=== PATIENT | male | born 1975 | race Caucasian/White ===

== ENCOUNTER → 2016-08-23 | Outpatient (CLI) | payer MEDICAID ==
[~2016-08-23] MED LIST: CLIN1CAP5 PO; DEXA1TA PO; LEVA500T PO
== END ==
LOC: M OUTALCOH 12:10
PROVIDERS: ATTEND Psychiatry & Neurology Psychiatry
DX: Z13.9 Encounter for screening, unspecified (principal); F10.20 Alcohol dependence, uncomplicated

== ENCOUNTER 2016-09-14 09:00 | Outpatient (RCR) | payer MEDICAID | END 2016-09-15 | LOC: M OUTALCOH 09:00 | PROVIDERS: ATTEND Psychiatry & Neurology Psychiatry | DX: Z13.9 Encounter for screening, unspecified (principal); F10.20 Alcohol dependence, uncomplicated; F17.200 Nicotine dependence, unspecified, uncomplicated ==

== ENCOUNTER 2016-10-08 08:45 | Outpatient (RCR) | payer MEDICAID ==
[~2016-10-08 08:45] MED LIST changes: +CLIN150C14 PO; -CLIN1CAP5 PO; +LEVA1TAB2 PO; -LEVA500T PO
== END 2016-10-15 ==
LOC: M OUTALCOH 08:45
PROVIDERS: ATTEND Psychiatry & Neurology Psychiatry
DX: Z13.9 Encounter for screening, unspecified (principal); F10.20 Alcohol dependence, uncomplicated; F17.200 Nicotine dependence, unspecified, uncomplicated

== ENCOUNTER 2016-12-02 17:29 | Emergency (ER) | payer MEDICAID ==
[~2016-12-02] VITALS: Ht 162.6 cm; Wt 75.0 kg
[2016-12-02] MEDS ORDERED: ONDANSETRON 4MG/2ML VIAL (J2405) IV ONE (18:30)
[2016-12-02] MEDS ORDERED: NS 1,000 ML IV ONE (18:30)
[2016-12-02] MEDS ORDERED: fentaNYL 100 MCG/2 ML INJECTION (J3010) IV ONE (18:30)
[2016-12-02] MEDS ORDERED: PANTOPRAZOLE 40MG INJ (PROTONIX) (C9113) IV ONE (18:30)
[2016-12-02 18:41] LABS: INR 1.02
[2016-12-02 18:48] LABS: BASO # 0.1 K/mm3 (0.0-0.2); BASO % 0.5 % (0.0-1.0); EOS # 0.1 K/mm3 (0.0-0.50); EOS % 0.6 % (0.0-3.0); LARGE UNSTAINED CELL # 0.2 K/mm3 (0.0-0.4); LARGE UNSTAINED CELL % 1.3 % (0.0-4.0); LYMPH # 2.7 K/mm3 (1.5-4.5); LYMPH % 22.1 % (24.0-44.0); MEAN CORPUSCULAR HGB CONC 35.7 g/dl (32.0-36.5); MEAN CORPUSCULAR VOLUME 86.9 fl (80.0-96.0); MONO # 0.6 K/mm3 (0.0-0.8); MONO % 5.5 % (0.0-5.0); NEUTROPHILS # 8.1 K/mm3 (1.8-7.7); PLATELET COUNT, AUTOMATED 198 k/mm3 (150-450); RED CELL DISTRIBUTION WIDTH 12.3 % (11.5-14.5); WHITE BLOOD COUNT 11.6 K/mm3 (4.0-10.0)
[2016-12-02 18:53] LABS: ALBUMIN 4.3 GM/DL (3.2-5.2); ALBUMIN/GLOBULIN RATIO 1.39 (1.00-1.93); ALKALINE PHOSPHATASE 102 U/L (45-117); ALT/SGPT 25 U/L (12-78); ANION GAP 8 MEQ/L (8-16); AST/SGOT 18 U/L (15-37); BILIRUBIN,DIRECT 0.2 MG/DL (0.0-0.2); BILIRUBIN,TOTAL 1.4 MG/DL (0.2-1.0); BLOOD UREA NITROGEN 13 MG/DL (7-18); CALCIUM LEVEL 8.8 MG/DL (8.5-10.1); CARBON DIOXIDE LEVEL 27 MEQ/L (21-32); CHLORIDE LEVEL 106 MEQ/L (98-107); GLOMERULAR FILTRATION RATE > 60.0 (>60); GLUCOSE, FASTING 120 MG/DL (70-105); SODIUM LEVEL 141 MEQ/L (136-145); TOTAL PROTEIN 7.4 GM/DL (6.4-8.2)
[2016-12-02] MEDS ORDERED: ISOVUE-370 76% 100ML VIAL (Q9967) As Ordered ONE (19:10)
--- NOTE | 2016-12-02 20:50 | REPUSA ---
HISTORY: EPIGASTRIC PAIN, N/V WITH REPORTED COFFEE GROUND EMESIS. TECHNIQUE: Axial CT imaging of the abdomen and pelvis with sagittal and coronal reformatted imaging, with intravenous contrast enhancement. DLP= 409.1 mGy-cm. FINDINGS: The examination demonstrates fluid-filled distention and bowel wall thickening in the sma ll bowel, consistent with nonspecific enteritis. The colon is normal. Appendix is normal. There is no evidence of bowel obstruction or perforation or evidence of diverticulitis. Lung bases are clear. No bony fracture or destructive bony lesion is seen in the abdomen and pelvis. The liver, biliary tree, gallbladder, spleen, pancreas, adrenal glands, and retroperitoneal structu res are normal. Both kidneys function without evidence of calculus, mass lesion, or obstruction. Ab dominal aorta and IVC are normal. No retroperitoneal adenopathy is seen. No pelvic mass lesions or abnormal peritoneal fluid collections are seen. There is no evidence of abdominal wall hernia. IMPRESSION: 1. Fluid-filled small bowel and bowel wall thickening in the proximal and mid small jes l, consistent with nonspecific enteritis, without evidence of bowel obstruction, ulceration, inflamma tory bowel disease, or bowel perforation. The distal small bowel, colon, and appendix are normal. 2. The remainder of the CT examination of the abdomen and pelvis is normal.
[2016-12-02] MEDS ORDERED: PROT1TAB2 PO (21:54)
[2016-12-02 22:06] VITALS: BP 142/78
--- NOTE | 2016-12-03 08:48 | ECGEPIP ---
Stationary ECG Study [facility] - ED Test Date: 2016-12-02 Pat Name: MARCO ANTONIO YE Department: Room: - Gender: M Payroll Supervisor: solange : 1975 Requested By: AKASH Collazo Order Number: [id number] Reading MD: Angelica Feldman Measurements Intervals [place] Rate: 69 P: 34 MD: 120 QRS: 68 QRSD: 95 T: -5 QT: 353 QTc: 379 Interpretive Statements SINUS RHYTHM NSTTW ABNORMALITY DECREASED RATE 08/16/13 Electronically Signed On 12-03-2016 8:47:47 EDT by Angelica Feldman
== END 2016-12-02 22:10 | disposition home or self-care (01) ==
LOC: M ED 17:29
DX: R10.13 Epigastric pain (principal); R07.9 Chest pain, unspecified; K92.2 Gastrointestinal hemorrhage, unspecified; J45.901 Unspecified asthma with (acute) exacerbation; F41.9 Anxiety disorder, unspecified; F32.9 Major depressive disorder, single episode, unspecified; Z87.891 Personal history of nicotine dependence; Z88.0 Allergy status to penicillin
CPT/HCPCS: 74177; 80048; 80076; 81001; 82550; 82553; 83605; 83690; 85025; 85610; 85730; 86850; 86900; 86901; 93005; 93041; 96361; 96374; 96375; 99285; C9113; J2405; J3010; Q9967

== ENCOUNTER 2016-12-22 17:13 | Emergency (ER) | payer MEDICAID, OTHER ==
[~2016-12-22] VITALS: Ht 162.6 cm; Wt 69.0 kg
[~2016-12-22 17:13] MED LIST changes: +PROT1TAB2 PO
[2016-12-22 18:43] LABS: MEAN CORPUSCULAR HEMOGLOBIN 29.7 pg (27.0-33.0); MEAN CORPUSCULAR HGB CONC 33.4 g/dl (32.0-36.5); RED CELL DISTRIBUTION WIDTH 12.5 % (11.5-14.5); WHITE BLOOD COUNT 8.8 K/mm3 (4.0-10.0)
[2016-12-22 18:58] LABS: METHADONE URINE NEGATIVE (NEGATIVE)
[2016-12-22 19:07] LABS: ALBUMIN/GLOBULIN RATIO 1.25 (1.00-1.93); ALKALINE PHOSPHATASE 98 U/L (45-117); ALT/SGPT 22 U/L (12-78); ANION GAP 10 MEQ/L (8-16); AST/SGOT 10 U/L (15-37); BILIRUBIN,DIRECT 0.2 MG/DL (0.0-0.2); BLOOD UREA NITROGEN 18 MG/DL (7-18); CALCIUM LEVEL 9.1 MG/DL (8.5-10.1); CARBON DIOXIDE LEVEL 27 MEQ/L (21-32); CHLORIDE LEVEL 105 MEQ/L (98-107); CREATININE FOR GFR 0.95 MG/DL (0.70-1.30); GLOMERULAR FILTRATION RATE > 60.0 (>60); GLUCOSE, FASTING 82 MG/DL (70-105); POTASSIUM SERUM 4.3 MEQ/L (3.5-5.1); SODIUM LEVEL 142 MEQ/L (136-145); TOTAL PROTEIN 7.2 GM/DL (6.4-8.2)
[2016-12-22 21:49] VITALS: BP 130/81
== END 2016-12-22 21:50 | disposition home or self-care (01) ==
LOC: M ED 17:13
DX: F32.9 Major depressive disorder, single episode, unspecified (principal); F41.9 Anxiety disorder, unspecified; Z72.0 Tobacco use

== ENCOUNTER 2016-12-25 18:58 | Emergency (ER) | payer OTHER ==
[~2016-12-25] VITALS: Ht 162.6 cm; Wt 78.0 kg
[2016-12-25] MEDS ORDERED: TRAZ50TA11 PO (19:12)
[2016-12-25] MEDS ORDERED: NS 500 ML IV ONE (19:45)
[2016-12-25 20:13] LABS: MEAN CORPUSCULAR VOLUME 86.2 fl (80.0-96.0); RED CELL DISTRIBUTION WIDTH 12.4 % (11.5-14.5); WHITE BLOOD COUNT 8.7 K/mm3 (4.0-10.0)
[2016-12-25 20:37] LABS: METHADONE URINE NEGATIVE (NEGATIVE)
[2016-12-25 20:46] LABS: ALBUMIN 3.8 GM/DL (3.2-5.2); ALBUMIN/GLOBULIN RATIO 1.19 (1.00-1.93); ALKALINE PHOSPHATASE 102 U/L (45-117); ALT/SGPT 31 U/L (12-78); ANION GAP 7 MEQ/L (8-16); AST/SGOT 20 U/L (15-37); BILIRUBIN,DIRECT 0.2 MG/DL (0.0-0.2); BILIRUBIN,TOTAL 0.8 MG/DL (0.2-1.0); BLOOD UREA NITROGEN 8 MG/DL (7-18); CALCIUM LEVEL 8.4 MG/DL (8.5-10.1); CARBON DIOXIDE LEVEL 27 MEQ/L (21-32); CHLORIDE LEVEL 109 MEQ/L (98-107); CREATININE FOR GFR 0.78 MG/DL (0.70-1.30); GLOMERULAR FILTRATION RATE > 60.0 (>60); GLUCOSE, FASTING 105 MG/DL (70-105); POTASSIUM SERUM 3.4 MEQ/L (3.5-5.1); SODIUM LEVEL 143 MEQ/L (136-145)
[2016-12-25 21:31] VITALS: BP 123/70
--- NOTE | 2016-12-26 18:22 | ECGEPIP ---
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
== END 2016-12-25 21:39 | disposition home or self-care (01) ==
LOC: M ED 18:58
DX: F10.129 Alcohol abuse with intoxication, unspecified (principal); Z72.0 Tobacco use

== ENCOUNTER 2017-02-11 10:44 | Emergency (ER) | payer OTHER ==
[~2017-02-11] VITALS: Ht 162.6 cm; Wt 71.4 kg
[~2017-02-11 10:44] MED LIST changes: +TRAZ50TA11 PO
[2017-02-11] MEDS ORDERED: VENTAER (10:57)
[2017-02-11 12:54] LABS: MEAN CORPUSCULAR HEMOGLOBIN 30.3 pg (27.0-33.0); MEAN CORPUSCULAR HGB CONC 34.5 g/dl (32.0-36.5); MEAN CORPUSCULAR VOLUME 87.8 fl (80.0-96.0); PLATELET COUNT, AUTOMATED 222 10^3/uL (150-450); RED CELL DISTRIBUTION WIDTH 13.2 % (11.5-14.5); WHITE BLOOD COUNT 14.9 10^3/uL (4.0-10.0)
[2017-02-11 13:16] LABS: METHADONE URINE NEGATIVE (NEGATIVE)
[2017-02-11 13:23] LABS: ALBUMIN/GLOBULIN RATIO 1.18 (1.00-1.93); ALKALINE PHOSPHATASE 108 U/L (45-117); ALT/SGPT 35 U/L (12-78); ANION GAP 6 MEQ/L (8-16); AST/SGOT 20 U/L (15-37); BILIRUBIN,DIRECT 0.2 MG/DL (0.0-0.2); BLOOD UREA NITROGEN 11 MG/DL (7-18); CALCIUM LEVEL 9.1 MG/DL (8.5-10.1); CARBON DIOXIDE LEVEL 29 MEQ/L (21-32); CHLORIDE LEVEL 105 MEQ/L (98-107); CREATININE FOR GFR 0.85 MG/DL (0.70-1.30); GLOMERULAR FILTRATION RATE > 60.0 (>60); GLUCOSE, FASTING 104 MG/DL (70-105); POTASSIUM SERUM 4.5 MEQ/L (3.5-5.1); SODIUM LEVEL 140 MEQ/L (136-145); TOTAL PROTEIN 7.4 GM/DL (6.4-8.2)
[2017-02-11] MEDS ORDERED: CLONI1TA PO (13:57)
[2017-02-11] MEDS ORDERED: PROM25TA PO (13:59)
[2017-02-11 14:45] VITALS: BP 148/96
== END 2017-02-11 14:58 | disposition home or self-care (01) ==
LOC: M ED 10:44
DX: F19.10 Other psychoactive substance abuse, uncomplicated (principal); F10.230 Alcohol dependence with withdrawal, uncomplicated; J45.909 Unspecified asthma, uncomplicated; G43.909 Migraine, unspecified, not intractable, without status migrainosus; K21.9 Gastro-esophageal reflux disease without esophagitis; F41.9 Anxiety disorder, unspecified; F33.9 Major depressive disorder, recurrent, unspecified; Z79.899 Other long term (current) drug therapy; Z88.0 Allergy status to penicillin; F17.210 Nicotine dependence, cigarettes, uncomplicated; F12.20 Cannabis dependence, uncomplicated

== ENCOUNTER → 2019-01-17 | Outpatient (CLI) | payer MEDICAID ==
[~2019-01-17] MED LIST changes: +CLONI1TA PO; +PROM25TA12 PO; +TRAZ-252 PO; -TRAZ50TA11 PO; +VENTAER
== END ==
LOC: M OUTALCOH 08:11
PROVIDERS: ATTEND Psychiatry & Neurology Psychiatry
DX: Z13.39 Encounter for screening examination for other mental health and behavioral disorders (principal)

== ENCOUNTER 2019-01-23 13:21 | Outpatient (RCR) | payer MEDICAID | END 2019-02-15 | LOC: M OUTALCOH 13:21 | PROVIDERS: ATTEND Psychiatry & Neurology Psychiatry | DX: Z03.89 Encounter for observation for other suspected diseases and conditions ruled out (principal) ==

== ENCOUNTER 2019-03-11 01:26 | Emergency (ER) | payer MEDICAID ==
[~2019-03-11] VITALS: Ht 162.6 cm; Wt 71.8 kg
[2019-03-11] MEDS ORDERED: FLUT1BLS5 (01:38)
[2019-03-11] MEDS ORDERED: TOPI50TA9 (01:38)
[2019-03-11] MEDS ORDERED: METH4PACK (01:38)
[2019-03-11] MEDS ORDERED: NAPR-885 (01:38)
[2019-03-11] MEDS ORDERED: SUMA50TA2 (01:38)
[2019-03-11] MEDS ORDERED: IBUP-1022 (01:38)
[2019-03-11] MEDS ORDERED: LORA-674 (01:38)
[2019-03-11] MEDS ORDERED: GEMF600T5 (01:38)
[2019-03-11] MEDS ORDERED: methylPREDNISolone INJ 125 MG/2 ML VIAL (J2930) IM ONE (02:30)
[2019-03-11] MEDS ORDERED: PRED20TA PO (03:03)
[2019-03-11 03:12] VITALS: BP 140/83
--- NOTE | 2019-03-11 09:38 | REP ---
single AP view of the shoulder was obtained due to pain. This examination cannot rule out a fracture or glenohumeral dislocation. There are mild AC joint changes. No gross abnormality is noted. IMPRESSION: Limited exam as described above. Electronically Signed by Vaibhav Bullock DO 03/11/2019 09:53 A
== END 2019-03-11 03:13 | disposition home or self-care (01) ==
LOC: M ED 01:26
DX: M19.011 Primary osteoarthritis, right shoulder (principal); I10 Essential (primary) hypertension; J45.909 Unspecified asthma, uncomplicated; F19.10 Other psychoactive substance abuse, uncomplicated; F10.10 Alcohol abuse, uncomplicated; M19.90 Unspecified osteoarthritis, unspecified site; F41.9 Anxiety disorder, unspecified; F17.200 Nicotine dependence, unspecified, uncomplicated; Z79.899 Other long term (current) drug therapy; Z88.0 Allergy status to penicillin
CPT/HCPCS: 73020; 96372; 99284; J2930

== ENCOUNTER 2019-03-27 17:41 | Emergency (ER) | payer MEDICAID ==
[~2019-03-27] VITALS: Ht 162.6 cm; Wt 76.9 kg
[~2019-03-27 17:41] MED LIST changes: +FLUT1BLS5; +GEMF600T5; +IBUP-1022; +LORA-674; +METH4PACK; +NAPR-885; +PRED20TA PO; +SUMA50TA2; +TOPI50TA9
[2019-03-27 17:45] VITALS: BP 143/82
== END 2019-03-27 19:42 | disposition left against medical advice (07) ==
LOC: M ED 17:41
DX: Z53.21 Procedure and treatment not carried out due to patient leaving prior to being seen by health care provider (principal)

== ENCOUNTER 2019-08-08 23:19 | Emergency (ER) | payer MEDICAID ==
[~2019-08-08] VITALS: Ht 162.6 cm; Wt 77.4 kg
[2019-08-08 23:20] VITALS: BP 144/76
[2019-08-08] MEDS ORDERED: TOPI25CA3 PO (23:35)
[2019-08-09] MEDS ORDERED: MAGIC MOUTHWASH SUSPENSION BTL SS STA (00:07)
[2019-08-09] MEDS ORDERED: CLEV1MIS25 XX (00:27)
[2019-08-09] MEDS ORDERED: ALBU83IN NEB (00:27)
[2019-08-09] MEDS ORDERED: GI COCKTAIL 50ML BTL(HYOSCYAMINE/MAALOX/LIDOCAINE VISCOUS)(1:3:1) PO ONE (00:30)
[2019-08-09 01:15] LABS: BASO # 0.1 10^3/uL (0.0-0.2); BASO % 0.6 % (0.0-1.0); EOS # 0.2 10^3/uL (0.0-0.5); EOS % 1.5 % (0.0-3.0); HEMATOCRIT 45.4 % (42.0-52.0); HEMOGLOBIN 15.8 g/dl (13.5-17.5); LYMPH # 4.3 10^3/uL (1.5-5.0); LYMPH % 29.8 % (24.0-44.0); MEAN CORPUSCULAR HEMOGLOBIN 29.9 pg (27.0-33.0); MEAN CORPUSCULAR HGB CONC 34.8 g/dl (32.0-36.5); MEAN CORPUSCULAR VOLUME 85.8 fl (80.0-96.0); MONO # 1.2 10^3/uL (0.0-0.8); MONO % 8.4 % (0.0-5.0); NEUTROPHILS # 8.4 10^3/uL (1.5-8.5); NEUTROPHILS % 59.3 % (36.0-66.0); PLATELET COUNT, AUTOMATED 217 10^3/uL (150-450); RED BLOOD COUNT 5.29 10^6/uL (4.30-6.10); WHITE BLOOD COUNT 14.2 10^3/uL (4.0-10.0)
[2019-08-09 01:40] LABS: BLOOD UREA NITROGEN 22 MG/DL (7-18); C REACTIVE PROTEIN QUANTITATIV < 0.30 MG/DL (0.00-0.30); CALCIUM LEVEL 8.6 MG/DL (8.5-10.1); CARBON DIOXIDE LEVEL 25 MEQ/L (21-32); CHLORIDE LEVEL 106 MEQ/L (98-107); CREATININE FOR GFR 1.09 MG/DL (0.70-1.30); GLOMERULAR FILTRATION RATE > 60.0 (>60); GLUCOSE, FASTING 117 MG/DL (70-100); POTASSIUM SERUM 3.9 MEQ/L (3.5-5.1); SODIUM LEVEL 138 MEQ/L (136-145)
[2019-08-09 01:41] LABS: ERYTHROCYTE SEDIMENTATION RATE 2 mm/hr (0-15)
--- NOTE | 2019-08-09 02:47 | REP ---
Clinical: Fatigue and sore throat . Comparison: 08/16/2013 . Findings: The mediastinum and cardiac silhouette are stable and within normal limits for portable technique. The lung sigala are clear without acute consolidation, effusion, or pneumothorax. Skeletal structures are intact. Impression: No acute cardiopulmonary process appreciated. Electronically Signed by Sav Dillon MD 08/09/2019 02:38 A
== END 2019-08-09 01:34 | disposition home or self-care (01) ==
LOC: M ED 23:19
DX: J02.9 Acute pharyngitis, unspecified (principal); R53.83 Other fatigue; R68.83 Chills (without fever); J44.9 Chronic obstructive pulmonary disease, unspecified; E78.5 Hyperlipidemia, unspecified; I10 Essential (primary) hypertension; G43.909 Migraine, unspecified, not intractable, without status migrainosus; F31.9 Bipolar disorder, unspecified; F17.200 Nicotine dependence, unspecified, uncomplicated; Z88.0 Allergy status to penicillin
CPT/HCPCS: 36415; 71045; 80048; 85025; 85652; 86140; 87040; 87486; 87581; 87633; 87798; 87880; 99283; U0002

== ENCOUNTER → 2020-03-25 | Outpatient (CLI) | payer SELFPAY ==
[~2020-03-25] MED LIST changes: +ALBU83IN NEB; +CLEV1MIS25 XX; +TOPI25CA3 PO
== END ==
LOC: M LABSMTC 14:43
PROVIDERS: ATTEND Pediatrics
DX: Z11.59 Encounter for screening for other viral diseases (principal)

== ENCOUNTER 2021-05-22 22:50 | Emergency (ER) | payer MEDICAID, OTHER, SELFPAY ==
[~2021-05-22 22:50] MED LIST changes: -CLIN150C14 PO; +CLIN150C17 PO; -TOPI25CA3 PO; +TOPI25CA5 PO
[2021-05-22] MEDS ORDERED: HALOPERIDOL 5MG/ML VIAL (J1630 PER 1) As Ordered ONE (22:54)
[2021-05-22] MEDS ORDERED: diphenhydrAMINE 50MG/ML VIAL (J1200) As Ordered ONE (22:55)
[2021-05-22] MEDS ORDERED: HALOPERIDOL 5MG/ML VIAL (J1630 PER 1) IM ONE (22:55)
[2021-05-22] MEDS ORDERED: NS 1,000 ML IV ONE (22:55)
[2021-05-22] MEDS ORDERED: diphenhydrAMINE 50MG/ML VIAL (J1200) IM ONE (22:55)
[2021-05-22] MEDS ORDERED: LORazepam 2 MG/ML VIAL IM ONE (22:55)
[2021-05-23 00:08] LABS: BASO # 0.1 10^3/uL (0.0-0.2); BASO % 0.3 % (0.0-1.0); EOS % 0.1 % (0.0-3.0); HEMATOCRIT 45.3 % (42.0-52.0); HEMOGLOBIN 15.5 g/dl (13.5-17.5); LYMPH # 2.7 10^3/uL (1.5-5.0); LYMPH % 14.2 % (24.0-44.0); MEAN CORPUSCULAR HGB CONC 34.2 g/dl (32.0-36.5); MEAN CORPUSCULAR VOLUME 87.6 fl (80.0-96.0); MONO # 0.9 10^3/uL (0.0-0.8); MONO % 4.6 % (2.0-8.0); NEUTROPHILS # 15.2 10^3/uL (1.5-8.5); NEUTROPHILS % 79.9 % (36.0-66.0); PLATELET COUNT, AUTOMATED 263 10^3/uL (150-450); RED BLOOD COUNT 5.17 10^6/uL (4.30-6.10)
[2021-05-23 00:09] LABS: ACETAMINOPHEN LEVEL < 2.0 UG/ML (10.0-30.0); ALBUMIN 3.9 GM/DL (3.2-5.2); ALT/SGPT 40 U/L (12-78); BILIRUBIN,DIRECT 0.2 MG/DL (0.0-0.2); BILIRUBIN,TOTAL 0.8 MG/DL (0.2-1.0); BLOOD UREA NITROGEN 11 MG/DL (7-18); CALCIUM LEVEL 8.4 MG/DL (8.5-10.1); CARBON DIOXIDE LEVEL 21 MEQ/L (21-32); CHLORIDE LEVEL 102 MEQ/L (98-107); CREATININE FOR GFR 1.08 MG/DL (0.70-1.30); ETHYL ALCOHOL (ETHANOL) 0.181 % (0.000-0.010); GLOMERULAR FILTRATION RATE > 60.0 (>60); GLUCOSE, FASTING 81 MG/DL (70-100); POTASSIUM SERUM 3.8 MEQ/L (3.5-5.1); SALICYLATE LEVEL 3.1 MG/DL (5.0-30.0); SODIUM LEVEL 138 MEQ/L (136-145); THYROID STIMULATING HORMONE 0.965 uIU/ML (0.358-3.740); TOTAL PROTEIN 7.5 GM/DL (6.4-8.2)
[2021-05-23] MEDS ORDERED: LORazepam 2 MG/ML VIAL IV STA (01:07)
[2021-05-23 02:00] LABS: AMPHETAMINES LEVEL URINE POSITIVE (NEGATIVE); BARBITURATES URINE NEGATIVE (NEGATIVE); BENZODIAZEPINES URINE NEGATIVE (NEGATIVE); CANNABINOIDS URINE POSITIVE (NEGATIVE); COCAINE METABOLITE URINE NEGATIVE (NEGATIVE); METHADONE URINE NEGATIVE (NEGATIVE); OPIATES URINE NEGATIVE (NEGATIVE); PHENCYCLIDINE URINE NEGATIVE (NEGATIVE)
[2021-05-23] MEDS ORDERED: LABETALOL 100MG/20ML VIAL IV STA (04:29)
[2021-05-23 04:48] VITALS: BP 200/128
[2021-05-23] MEDS ORDERED: OXAZEPAM 15 MG CAP PO ONE (08:40)
[2021-05-23] MEDS ORDERED: LORazepam 2 MG TAB PO PRN (08:40)
[2021-05-23] MEDS ORDERED: FOLIC ACID 1 MG TAB PO SCH (09:00)
[2021-05-23] MEDS ORDERED: MULTIVITAMINS/MINERALS THERAP 1 TAB PO SCH (09:00)
[2021-05-23] MEDS ORDERED: THIAMINE 100 MG TAB PO SCH (09:00)
[2021-05-23] MEDS ORDERED: PROPOFOL 1,000 MG/100 ML VIAL As Ordered ONE (09:33)
[2021-05-23 11:52] VITALS: BP 158/98
== END 2021-05-23 12:22 | disposition home or self-care (01) ==
LOC: M ED 22:50
DX: F19.10 Other psychoactive substance abuse, uncomplicated (principal); U07.1 COVID-19; R00.0 Tachycardia, unspecified; F12.10 Cannabis abuse, uncomplicated; Z79.899 Other long term (current) drug therapy; Z88.0 Allergy status to penicillin
CPT/HCPCS: 51701; 70450; 71045; 80048; 80076; 80143; 80307; 82077; 82550; 84443; 85025; 87798; 93005; 93041; 94760; 96360; 96361; 96372; 96374; 96375; 99285; J1200; J1630; J2060

== ENCOUNTER 2022-02-02 13:25 | Emergency (ER) | payer OTHER ==
[~2022-02-02] VITALS: Ht 162.6 cm; Wt 75.9 kg
[2022-02-02 13:25] VITALS: BP 170/98
[~2022-02-02 13:25] MED LIST changes: +ALBU2.5V10 NEB; -ALBU83IN NEB
== END 2022-02-02 22:04 | disposition left against medical advice (07) ==
LOC: M ED 13:25
DX: Z53.21 Procedure and treatment not carried out due to patient leaving prior to being seen by health care provider (principal)

== ENCOUNTER 2022-07-08 18:45 | Emergency (ER) | payer OTHER ==
[~2022-07-08] VITALS: Ht 162.6 cm; Wt 72.0 kg
[~2022-07-08 18:45] MED LIST changes: +TOPI-254; -TOPI50TA9
[2022-07-08] MEDS ORDERED: SUCRALFATE 1 GM TAB PO ONE (19:15)
[2022-07-08] MEDS ORDERED: PANTOPRAZOLE 40MG VIAL IV ONE (19:15)
[2022-07-08] MEDS ORDERED: GI COCKTAIL 50ML BTL(HYOSCYAMINE/MAALOX/LIDOCAINE VISCOUS)(1:3:1) PO ONE (19:15)
[2022-07-08 19:37] LABS: BASO # 0.1 10^3/uL (0.0-0.2); BASO % 0.3 % (0.0-1.0); HEMATOCRIT 51.1 % (42.0-52.0); HEMOGLOBIN 17.9 g/dl (13.5-17.5); LYMPH # 1.8 10^3/uL (1.5-5.0); LYMPH % 6.3 % (24.0-44.0); MEAN CORPUSCULAR HEMOGLOBIN 30.5 pg (27.0-33.0); MEAN CORPUSCULAR VOLUME 87.1 fl (80.0-96.0); MONO % 5.4 % (2.0-8.0); NEUTROPHILS # 25.1 10^3/uL (1.5-8.5); NEUTROPHILS % 87.2 % (36.0-66.0); PLATELET COUNT, AUTOMATED 257 10^3/uL (150-450); RED BLOOD COUNT 5.87 10^6/uL (4.30-6.10); WHITE BLOOD COUNT 28.8 10^3/uL (4.0-10.0)
[2022-07-08 19:56] LABS: CK-MB VALUE MASS 2.3 NG/ML (<3.6)
[2022-07-08 19:57] LABS: LIPASE 22 U/L (12-53)
[2022-07-08 19:58] LABS: CPK CREATINE PHOSPHOKINASE 190 U/L (46-171); MB/CK RELATIVE INDEX 1.21 (< OR =4)
[2022-07-08 19:59] LABS: ALBUMIN 4.1 G/DL (3.2-5.2); ALKALINE PHOSPHATASE 153 U/L (46-116); ALT/SGPT 34 U/L (7.0-40); AST/SGOT 23 U/L (<34); BILIRUBIN,DIRECT 0.4 MG/DL (<0.4); BILIRUBIN,TOTAL 1.7 MG/DL (0.3-1.2); BLOOD UREA NITROGEN 16 MG/DL (9-23); CALCIUM LEVEL 9.4 MG/DL (8.5-10.1); CARBON DIOXIDE LEVEL 24 MMOL/L (20-31); CHLORIDE LEVEL 103 MMOL/L (98-107); CREATININE FOR GFR 0.91 MG/DL (0.70-1.30); GLOMERULAR FILTRATION RATE > 60.0 (>60); GLUCOSE, FASTING 98 MG/DL (60-100); POTASSIUM SERUM 4.5 MMOL/L (3.5-5.1); SODIUM LEVEL 136 MMOL/L (136-145); TOTAL PROTEIN 7.5 G/DL (5.7-8.2)
[2022-07-08 20:02] LABS: FREE T4 1.37 NG/DL (0.89-1.76); THYROID STIMULATING HORMONE 2.245 uIU/ML (0.55-4.78)
[2022-07-08 20:17] LABS: MONO # 1.6 10^3/uL (0.0-0.8)
[2022-07-08] MEDS ORDERED: CARA1TAB6 PO (21:04)
[2022-07-08] MEDS ORDERED: PROT1TAB2 PO (21:04)
[2022-07-08 21:25] LABS: CK-MB VALUE MASS 2.5 NG/ML (<3.6)
[2022-07-08 21:29] LABS: MB/CK RELATIVE INDEX 1.22 (< OR =4)
[2022-07-08 21:30] VITALS: BP 167/88
== END 2022-07-08 21:38 | disposition home or self-care (01) ==
LOC: M ED 18:45 → EDBD 18:45 → M ED 21:38
DX: K29.20 Alcoholic gastritis without bleeding (principal); I10 Essential (primary) hypertension; E78.5 Hyperlipidemia, unspecified; K21.9 Gastro-esophageal reflux disease without esophagitis; J45.909 Unspecified asthma, uncomplicated; F31.9 Bipolar disorder, unspecified; F44.81 Dissociative identity disorder; F17.200 Nicotine dependence, unspecified, uncomplicated; F12.10 Cannabis abuse, uncomplicated; Z79.899 Other long term (current) drug therapy; Z88.0 Allergy status to penicillin
CPT/HCPCS: 71045; 80048; 80076; 82077; 82550; 82553; 83690; 84439; 84443; 85025; 93005; 93041; 94760; 96374; 99285; C9113

== ENCOUNTER 2022-09-08 01:43 | Emergency (ER) | payer OTHER ==
[~2022-09-08 01:43] MED LIST changes: +CARA1TAB6 PO
[2022-09-08] MEDS ORDERED: LIDOCAINE 2% MDV 20ML VIAL SC ONE (01:50)
[2022-09-08] MEDS ORDERED: DOXYCYCLINE HYCLATE 100MG TABLET PO ONE (02:35)
[2022-09-08] MEDS ORDERED: DOXY100C81 PO (03:00)
[2022-09-08] MEDS ORDERED: BOOSTRIX VACCINE (TETANUS/DIPHTH/ACEL. PERTUSSIS) 0.5ML SYR IM.IMMUN ONE (03:05)
== END 2022-09-08 03:05 | disposition home or self-care (01) ==
LOC: EDBD 01:43 → M ED 01:43
DX: S41.112A Laceration without foreign body of left upper arm, initial encounter (principal); X99.9XXA Assault by unspecified sharp object, initial encounter; Y92.410 Unspecified street and highway as the place of occurrence of the external cause; E78.5 Hyperlipidemia, unspecified; F17.200 Nicotine dependence, unspecified, uncomplicated; F12.10 Cannabis abuse, uncomplicated; F10.10 Alcohol abuse, uncomplicated; Z79.899 Other long term (current) drug therapy; Z88.0 Allergy status to penicillin

== ENCOUNTER 2023-11-03 16:56 | Emergency (ER) | payer OTHER, SELFPAY ==
[~2023-11-03] VITALS: Ht 162.6 cm; Wt 69.1 kg
[~2023-11-03 16:56] MED LIST changes: +DOXY100C82 PO; +LORA-1041; -LORA-674; +TOPI-21; -TOPI-254
[2023-11-03 16:57] VITALS: TEMP 98.2
[2023-11-03] MEDS ORDERED: OMEP-173 PO (17:21)
[2023-11-03 18:22] LABS: RSV AMPLIFICATION NEGATIVE (NEGATIVE)
[2023-11-03] MEDS: predniSONE 20 MG TAB PO ONE (18:39)
[2023-11-03] MEDS ORDERED: ADV250INH INH (18:43)
[2023-11-03] MEDS ORDERED: NEBU1EAC78 MC (18:43)
[2023-11-03] MEDS ORDERED: NEBUMIS9 XX (18:43)
[2023-11-03] MEDS ORDERED: ALBU2.5V10 NEB (18:43)
[2023-11-03] MEDS ORDERED: VENTAER INH (18:43)
[2023-11-03] MEDS ORDERED: PRED20TA PO (18:43)
[2023-11-03] MEDS ORDERED: AZIT-12 PO (18:46)
[2023-11-03 19:06] VITALS: BP 154/76; O2SAT 98
== END 2023-11-03 19:08 | disposition home or self-care (01) ==
LOC: M ED 16:56
DX: J44.1 Chronic obstructive pulmonary disease with (acute) exacerbation (principal); Z76.0 Encounter for issue of repeat prescription; J45.909 Unspecified asthma, uncomplicated; K21.9 Gastro-esophageal reflux disease without esophagitis; F17.200 Nicotine dependence, unspecified, uncomplicated; Z88.0 Allergy status to penicillin; Z79.52 Long term (current) use of systemic steroids; Z79.899 Other long term (current) drug therapy
CPT/HCPCS: 71045; 87631; 99283; J7512

== ENCOUNTER 2024-08-09 15:13 | Emergency (ER) | payer OTHER, SELFPAY ==
[~2024-08-09] VITALS: Ht 162.6 cm; Wt 98.2 kg
[~2024-08-09 15:13] MED LIST changes: +ADVA1AER9 INH; +AZIT-12 PO; +DOXY-442 PO; -DOXY100C82 PO; +NEBU1EAC78 MC; +NEBUMIS9 XX; +OMEP-173 PO; +VENTAER INH
[2024-08-09] MEDS: SUCRALFATE SUSP 1GM/10ML UD PO ONE (17:49)
[2024-08-09] MEDS: OMEPRAZOLE 20MG CAP PO ONE (17:49)
[2024-08-09] MEDS: MAALOX 30 ML SUSP *UDC PO ONE (17:49)
[2024-08-09 19:24] VITALS: BP 130/78; TEMP 98; O2SAT 96
== END 2024-08-09 19:27 | disposition home or self-care (01) ==
LOC: M ED 15:13
DX: F10.10 Alcohol abuse, uncomplicated (principal); I10 Essential (primary) hypertension; E78.5 Hyperlipidemia, unspecified; J45.909 Unspecified asthma, uncomplicated; J44.9 Chronic obstructive pulmonary disease, unspecified; Z79.899 Other long term (current) drug therapy; Z88.0 Allergy status to penicillin

== ENCOUNTER 2024-12-03 20:46 | Emergency (ER) | payer OTHER ==
[~2024-12-03] VITALS: Ht 162.6 cm; Wt 87.2 kg
[2024-12-03 22:15] LABS: BASO # 0.1 10^3/uL (0.0-0.2); BASO % 0.4 % (0.0-1.0); EOS # 0.1 10^3/uL (0.0-0.5); EOS % 0.8 % (0.0-3.0); LYMPH # 3.0 10^3/uL (1.5-5.0); LYMPH % 21.3 % (24.0-44.0); MONO # 1.6 10^3/uL (0.0-0.8); MONO % 11.4 % (2.0-8.0); NEUTROPHILS # 9.4 10^3/uL (1.5-8.5); NEUTROPHILS % 65.7 % (36.0-66.0); PLATELET COUNT, AUTOMATED 240 10^3/uL (150-450)
[2024-12-03] MEDS: CLINDAMYCIN 900 MG in IV 1 EA IV ONE (22:28)
[2024-12-03 22:40] LABS: ALT/SGPT 43 U/L (7.0-40); AST/SGOT 23 U/L (<34); C REACTIVE PROTEIN QUANTITATIV 5.65 MG/DL (<1.0); CALCIUM LEVEL 9.8 MG/DL (8.5-10.1); CARBON DIOXIDE LEVEL 28 MMOL/L (20-31); CHLORIDE LEVEL 105 MMOL/L (98-107); CREATININE FOR GFR 0.80 MG/DL (0.70-1.30); GLOMERULAR FILTRATION RATE > 90.0 (>60); POTASSIUM SERUM 4.4 MMOL/L (3.5-5.1); SODIUM LEVEL 143 MMOL/L (136-145)
[2024-12-03] MEDS: KETOROLAC 30 MG/ML 1 ML VIAL IV ONE (23:21)
[2024-12-03] MEDS ORDERED: VANCOMYCIN HCL 1,000 MG, VIAL MATE ADAPTER 1 EACH in NS 250 ML IP ONE (23:45)
[2024-12-04] MEDS: VANCOMYCIN HCL 1,000 MG, VIAL MATE ADAPTER 1 EACH in NS 250 ML IV ONE (00:03)
[2024-12-04 01:00] VITALS: BP 114/73; O2SAT 95
[2024-12-04 01:56] VITALS: TEMP 97.6
== END 2024-12-04 02:00 | disposition home or self-care (01) ==
LOC: M ED 20:46
DX: L03.114 Cellulitis of left upper limb (principal); I10 Essential (primary) hypertension; E78.5 Hyperlipidemia, unspecified; F41.9 Anxiety disorder, unspecified; F32.A Depression, unspecified; J44.9 Chronic obstructive pulmonary disease, unspecified; F17.200 Nicotine dependence, unspecified, uncomplicated; Z79.899 Other long term (current) drug therapy; Z88.0 Allergy status to penicillin
CPT/HCPCS: 73080; 73090; 80053; 85025; 85652; 86140; 87040; 96365; 96367; 96375; 99284; J0737; J1885; J3373